=== PATIENT | male | born 1980 | race Caucasian/White ===

== ENCOUNTER 2017-06-29 06:40 | Emergency (ER) | payer BC ==
--- NOTE | 2017-06-29 07:05 | ERNOTE ---
Abdominal HPI - General Chief Complaint: Abdominal Pain Time Seen by Provider: 06/29/17 06:49 Source: patient Exam Limitations: no limitations - Immun/Allergies/Home Medications Immunizatons: IMMUNIZATION HX Immunizations Up to Date Yes History of Influenza Vaccine No Hx Pneumococcal Vaccination No Allergies/Adverse Reactions: Allergies No Known Allergies Allergy (Verified 06/29/17 06:55) Home Medications: HOME MEDICATIONS Acetaminophen [Tylenol] 1,000 mg PO Q6H PRN 03/16/15 [Last Taken Unknown] Aspirin 325 mg PO DAILY 03/16/15 [Last Taken 03/02/15 15:00] Atorvastatin Calcium [Lipitor] 80 mg PO DAILY 03/16/15 [Last Taken 03/16/15 06: 30] Lisinopril [Zestril] 10 mg PO DAILY 03/16/15 [Last Taken 03/16/15 15:00] Metoprolol Tartrate [Lopressor] 25 mg PO DAILY 03/16/15 [Last Taken 03/16/15 15: 00] Omeprazole [Prilosec] 40 mg PO DAILY 03/16/15 [Last Taken 03/16/15 15:00] Loratadine [Claritin] 10 mg PO DAILY 07/09/16 [Last Taken Unknown] - History of Present Illness Narrative: Pt has had abdominal cramping for 3-4 days. He had moderate diarrhea for 2 days then yesterday he thought his stools were more firm. Overnight he began cramping again. His was diagnosed with c-diff 4 days ago. He did clean the bathroom after her 3-4 days ago. Timing: intermittent Quality: moderate, cramping Activities at Onset: none Prior Abdominal Problems: Present: none Review of Systems - Review of Systems Constitutional: Present: weakness, fatigue EYE: Present: no symptoms reported ENT: Present: no symptoms reported Respiratory: Present: no symptoms reported Cardiology: Present: no symptoms reported Gastrointestinal/Abdominal: Present: See HPI. Absent: vomiting Genitourinary: Absent: frequency, dysuria Musculoskeletal: Absent: back pain Skin: Present: no symptoms reported Neurological: Present: no symptoms reported Endocrine: Present: no symptoms reported - Patient's Past Medical History Patient History - Medical: Anxiety, GERD Patient History - Cardiac/Respiratory: Hypertension, Hyperlipidemia, Myocardial Infarction Patient History - Cancer: No Hx of Cancer Patient History - Surgical Procedures: Angioplasty, Cardiac stent, T & A Patient History - Other: None - Family History Father Family History - Medical: Rheumatoid Arthritis Family History - Cardiac/Respiratory: Hypertension Mother Family History - Medical: Family History - Cardiac/Respiratory: Pulmonary Embolism Grandfather-Paternal Family History - Medical: , History Unknown Family History - Cardiac/Respiratory: Myocardial Infarction Sister Family History - Medical: No pertinent hx Family History - Cardiac/Respiratory: No pertinent hx - Social History Living Situations: alone Abuse History: No History of abuse Psych History: Hx of Anxiety Smoking Status: Former smoker Have you smoked in the past 12 months: No Do you dip or chew tobacco: No Alcohol Use: rarely Drug Use: none - Immunizations Immunizations Up to Date: Yes Hx Pneumococcal Vaccination: No History of Influenza Vaccine: No Physical Exam - Physical Exam General Appearance: Present: wd/wn, alert, no apparent distress Head Exam: Present: normal inspection, no evidence of injury Eye Exam: Normal inspection: bilateral Neck: Present: normal inspection, supple, full range of motion Respiratory: Present: no respiratory distress, no accessory muscle use Gastrointestinal/Abdominal: Present: tenderness - LLQ and L CVA, abnormal bowel sounds - Hypoactive. Absent: guarding, rebound Back Exam: Present: CVA tenderness (L) Extremity Exam: Present: normal inspection, normal range of motion Neurological Exam: Present: alert, oriented, no motor/sensory deficits Skin Exam: Present: normal color, warm/dry ED Progress - Vital Signs Patient's Vital Signs:: I have reviewed the patient's vital signs. Vital Signs: Vital Signs 06/29/17 06:45 Temperature 35.9 C L Pulse Rate 69 Respiratory 14 Rate Blood Pressure 134/82 O2 Sat by Pulse 98 Oximetry - Progress/Reassessment Chief Complaint: Abdominal Pain Progress:: Unchanged Progress Note-Subjective: Pt submitted a stool sample and was too formed for lab to test. I discussed this issue with the patient. He will try OTC medications ie. probiotics and gas -x but not anti-diarrheal. given stool sample kit to return sample if it is no longer solid. Pt expressed understanding Departure - Departure Clinical Impression: Gastroenteritis Disposition: Home self-care Condition: Good Instructions: Diarrhea, Adult, [id number] Additional Instructions: Collect stools if they become runny. Take probiotics. Follow up as needed
--- OUTSIDE RECORDS SUMMARY | 2017-06-29 07:05 | XMS REPORT | Clinical Summary ---
:1980 Author Organization [facility] [facility] Address Unavailable [place] [id number] Care Team Providers Name Role Phone Unavailable Primary Care Provider Unavailable Source Comments This disclosure is being made pursuant to the [employer] program and maynot contain all information available regarding this patient.[facility] Allergies No Known Allergies Current Medications Be aware that medications may not be up to date as of this document. Alwaysverify current medications with the patient. Prescription Sig. Disp. Refills Start Date End Date Status aspirin 325 MG tablet Take 325 mg by Active mouth daily. atorvastatin (LIPITOR) Take 80 mg by Active 80 MG tablet mouth daily. lisinopril Take 10 mg by Active (PRINIVIL,ZESTRIL) 5 MG mouth daily. tablet metoprolol tartrate Take 25 mg by Active (LOPRESSOR) 25 MG mouth daily. tablet traZODone (DESYREL) 50 Take 50 mg by Active MG tablet mouth nightly. acetaminophen (TYLENOL) Take 1,000 mg by Active 500 MG tablet mouth every 6 (six) hours as needed for Pain. Calcium Carbonate Chew by mouth. Active Antacid (ROLAIDS EXTRA 2 tablets STRENGTH) 1177 MG CHEW nightly as needed omeprazole (PRILOSEC) Take 1 capsule 60 capsule 0 06/10/2016 Active 40 MG capsule by mouth 2 (two) times daily before meals. omeprazole (PRILOSEC) TAKE ONE CAPSULE 60 capsule 0 06/12/2016 Active 40 MG capsule BY MOUTH TWICE DAILY BEFORE MEAL(S) Active Problems Not on file Social History Tobacco Use Types Packs/Day Years Used Date Former Smoker Alcohol Use Drinks/Week oz/Week Comments Yes occassionally Sex Assigned at Date Recorded Not on file Last Filed Vital Signs Vital Sign Reading Time Taken Blood Pressure 128/76 05/13/2015 8:24 AM CDT Pulse 64 05/13/2015 8:24 AM CDT Temperature 36.8 C (98.3 F) 05/13/2015 8:24 AM CDT Respiratory Rate - - Oxygen Saturation - - Inhaled Oxygen Concentration - - Weight 108.4 kg (239 lb) 05/13/2015 8:24 AM CDT Height 174 cm (5' 8.5") 05/13/2015 8:24 AM CDT Body Mass Index 35.81 05/13/2015 8:24 AM CDT Plan of Treatment Health Maintenance Due Date Last Done Comments Tetanus/Pertussis (1 - Tdap) 1997 INFLUENZA IMMUNIZATION (#1) 2016 Results Not on filefrom Last 3 Months Insurance Payer Benefit Plan / Subscriber ID Type Phone Address Group [employer] [id number] [place] of State [phone] [address] [facility] PROVIDERS ONLY [address] [place] [address] Home: [address] [phone] [place], [place] [id number]
[2017-06-29 08:12] VITALS: BP 140/89
== END 2017-06-29 08:20 | disposition home or self-care (01) ==
LOC: ER 06:40
DX: K52.9 Noninfective gastroenteritis and colitis, unspecified (principal); K21.9 Gastro-esophageal reflux disease without esophagitis; I10 Essential (primary) hypertension; E78.5 Hyperlipidemia, unspecified; Z95.5 Presence of coronary angioplasty implant and graft; Z87.891 Personal history of nicotine dependence